=== PATIENT | female | born 1935 | race Two or more races ===

== ENCOUNTER 2024-05-11 23:55 | Inpatient (IN) | payer MEDICARE, MEDICAID ==
[~2024-05-11] VITALS: Ht 160 cm; Wt 90.7 kg
[2024-05-12] MEDS ORDERED: AMLO5TAB4 PO (00:56)
[2024-05-12] MEDS ORDERED: HYDR-4076 PO (00:56)
[2024-05-12] MEDS ORDERED: ACET-2605 PO (00:56)
[2024-05-12] MEDS ORDERED: QUET25TA PO (00:56)
[2024-05-12] MEDS ORDERED: CHOL500062 PO (00:56)
[2024-05-12] MEDS ORDERED: ATOR20TA PO (00:56)
[2024-05-12] MEDS ORDERED: GABA-532 PO (00:56)
[2024-05-12] MEDS ORDERED: CRAN425C6 PO (00:56)
[2024-05-12] MEDS ORDERED: MELA10CA PO (00:56)
[2024-05-12] MEDS ORDERED: FAMO20TA8 PO (00:56)
[2024-05-12] MEDS ORDERED: LOSA100T3 PO (00:56)
[2024-05-12] MEDS ORDERED: METO25TA3 PO (00:56)
[2024-05-12 01:02] LABS: BASOPHILS % (AUTO) 0.5 % (0.0-2.0); EOSINOPHILS # (AUTO) 0.3 K/uL (0.0-0.7); EOSINOPHILS % (AUTO) 3.6 % (0.0-6.0); HEMATOCRIT 41 % (33-45); LYMPHOCYTES # (AUTO) 2.8 K/uL (0.8-4.8); LYMPHOCYTES % (AUTO) 29.8 % (20.0-44.0); MEAN CORPUSCULAR HEMOGLOBIN 30 PG (26.0-33.0); MEAN CORPUSCULAR HGB CONC 34 g/dl (31.0-36.0); MEAN CORPUSCULAR VOLUME 88 fL (82-100); MONOCYTES % (AUTO) 10.2 % (2.0-12.0); NEUTROPHILS # (AUTO) 5.3 K/uL (1.8-8.9); NEUTROPHILS % (AUTO) 55.9 % (43.0-81.0); PLATELET COUNT (AUTO) 176 K/uL (150-450); RED BLOOD CELL COUNT(AUTO) 4.64 MIL/uL (4.0-5.2); RED CELL DISTRIBUTION WIDTH 13.6 % (11.5-15.0); WHITE BLOOD COUNT (AUTO) 9.4 K/uL (4.3-11.0)
[2024-05-12 01:12] LABS: APPEARANCE,URINE CLEAR (CLEAR); BILIRUBIN,URINE NEGATIVE (NEGATIVE); BLOOD, URINE NEGATIVE Ery/uL (NEGATIVE); COLOR,URINE YELLOW (YELLOW); KETONES,URINE NEGATIVE (NEGATIVE); LEUKOCYTE ESTERASE ,URINE TRACE (NEGATIVE); NITRITE, URINE NEGATIVE (NEGATIVE); PH,URINE 7.5 (5.0-8.0); PROTEIN,URINE NEGATIVE (NEGATIVE); UGLUCOSE NEGATIVE (NEGATIVE)
[2024-05-12 01:20] LABS: AMPHETAMINE, URINE NEGATIVE (NEGATIVE); BARBITURATE, URINE NEGATIVE (NEGATIVE); BENZODIAZEPINE, URINE NEGATIVE (NEGATIVE); CANNABINOID, URINE NEGATIVE (NEGATIVE); COCCAINE, URINE NEGATIVE (NEGATIVE); OPIATE, URINE NEGATIVE (NEGATIVE); PHENCYCLIDINE SCREEN,URINE NEGATIVE (NEGATIVE)
[2024-05-12 01:22] LABS: RBC,URINE 0-2 /HPF (0-2)
[2024-05-12 01:23] LABS: ALANINE AMINOTRANSFERASE 22 U/L (12-78); ALBUMIN 3.2 g/dL (3.4-5.0); ALKALINE PHOSPHATASE 83 U/L (46-116); ASPARTATE AMINOTRANSFERASE 22 U/L (15-37); BILIRUBIN,DIRECT 0.2 mg/dL (0.0-0.2); BILIRUBIN,TOTAL 0.6 mg/dL (0.2-1.0); CALCIUM, SERUM 9.1 mg/dL (8.5-10.1); CARBON DIOXIDE 28 mmol/L (21-32); CHLORIDE 106 mmol/L (98-107); CREATININE 0.6 mg/dL (0.6-1.3); GLUCOSE 100 mg/dL (74-106); POTASSIUM 3.6 mmol/L (3.5-5.1); SODIUM SERUM 141 mmol/L (136-145); TOTAL PROTEIN, SERUM 6.5 g/dL (6.4-8.2); UREA NITROGEN, BLOOD 8 mg/dL (7-18)
[2024-05-12 01:23] LABS: ADD URINE CULTURE YES; BACTERIA,URINE 2+ /HPF (None Seen)
[2024-05-12 01:24] LABS: ACETAMINOPHEN <10 ug/ml (10-30); SALICYLATE 0.6 mg/dL (2.8-20.0)
[2024-05-12 01:33] LABS: ALCOHOL, BLOOD < 3 mg/dL (0-10)
[2024-05-12] MEDS ORDERED: HYDROCODONE/APAP 5/325MG TABLET ONE (02:32)
[2024-05-12] MEDS ORDERED: CEPHALEXIN MONOHYDRATE 500 MG CAPSULE PO ONE (02:33)
[2024-05-12] MEDS: HYDROCODONE/APAP 5/325MG TABLET PO PRN (02:39)
[2024-05-12] MEDS: CEPHALEXIN MONOHYDRATE 500 MG CAPSULE PO SCH (02:44)
[2024-05-12] MEDS ORDERED: MORPHINE SULFATE INJ 2 MG/ML DISP.SYRIN IV PRN (05:30)
[2024-05-12] MEDS ORDERED: IV NS 0.9% 1,000 ML IV PRN (05:30)
[2024-05-12] MEDS ORDERED: ACETAMINOPHEN 650 MG/SUPP.RECT RC PRN (05:30)
[2024-05-12] MEDS ORDERED: ONDANSETRON HCL/PF 4 MG/2 ML VIAL IVP PRN (05:30)
[2024-05-12 07:58] LABS: BASOPHILS % (AUTO) 0.3 % (0.0-2.0); EOSINOPHILS # (AUTO) 0.4 K/uL (0.0-0.7); EOSINOPHILS % (AUTO) 3.2 % (0.0-6.0); HEMATOCRIT 42 % (33-45); LYMPHOCYTES # (AUTO) 5.5 K/uL (0.8-4.8); LYMPHOCYTES % (AUTO) 48.9 % (20.0-44.0); MEAN CORPUSCULAR HEMOGLOBIN 29 PG (26.0-33.0); MEAN CORPUSCULAR HGB CONC 33 g/dl (31.0-36.0); MEAN CORPUSCULAR VOLUME 88 fL (82-100); MONOCYTES # (AUTO) 0.9 K/uL (0.1-1.30); MONOCYTES % (AUTO) 8.4 % (2.0-12.0); NEUTROPHILS # (AUTO) 4.4 K/uL (1.8-8.9); NEUTROPHILS % (AUTO) 39.2 % (43.0-81.0); PLATELET COUNT (AUTO) 183 K/uL (150-450); RED BLOOD CELL COUNT(AUTO) 4.81 MIL/uL (4.0-5.2); RED CELL DISTRIBUTION WIDTH 13.4 % (11.5-15.0); WHITE BLOOD COUNT (AUTO) 11.2 K/uL (4.3-11.0)
[2024-05-12 08:10] LABS: CALCIUM, SERUM 9.3 mg/dL (8.5-10.1); CREATININE 0.6 mg/dL (0.6-1.3); MAGNESIUM 1.9 mg/dL (1.8-2.4); PHOSPHORUS 2.9 mg/dL (2.5-4.9); POTASSIUM 4.1 mmol/L (3.5-5.1)
[2024-05-12 08:12] LABS: INR 1.09 (0.91-1.10); PROTHROMBIN TIME 11.5 SECS (9.2-11.1)
[2024-05-12] MEDS: PANTOPRAZOLE 40 MG VIAL IV SCH (09:00)
[2024-05-12] MEDS ORDERED: PANTOPRAZOLE 40 MG VIAL ONE (09:04)
[2024-05-12] MEDS ORDERED: ACET325T53 PO (12:34)
[2024-05-12] MEDS ORDERED: DOCU100C36 PO (12:34)
[2024-05-12] MEDS ORDERED: BISA5TAB10 PO (12:34)
[2024-05-12] MEDS ORDERED: MAGN400O6 PO (12:34)
[2024-05-12] MEDS ORDERED: ACETAMINOPHEN 325 MG TABLET PO PRN (17:30)
[2024-05-12] MEDS ORDERED: TEMAZEPAM 7.5 MG CAPSULE PO PRN (17:30)
[2024-05-12] MEDS ORDERED: LORAZEPAM 0.5 MG TABLET PO PRN (17:30)
[2024-05-12] MEDS ORDERED: MAG HYDROX/AL HYDROX/SIMETH 30 ML UDC PO PRN (17:30)
[2024-05-12] MEDS ORDERED: MAGNESIUM HYDROXIDE 30 ML UDC PO PRN (17:30)
[2024-05-12] MEDS: BLOOD SUGAR DIAGNOSTIC 1 EACH STRIP IN ONE (18:04)
[2024-05-12 20:00] VITALS: BP 140/93; TEMP 97.9; O2SAT 98
[2024-05-12] MEDS: QUETIAPINE FUMARATE 25 MG TABLET PO SCH (20:06)
[2024-05-12] MEDS ORDERED: QUETIAPINE FUMARATE 25 MG TABLET PO SCH (21:00)
[2024-05-13] MEDS ORDERED: CEFTRIAXONE 1 G in IV D5W 50 ML IV SCH (03:00)
[2024-05-13 08:00] VITALS: BP 121/83; TEMP 97.7; O2SAT 97
[2024-05-13] MEDS: DULOXETINE HCL 30 MG CAPSULE.DR PO SCH (14:19)
[2024-05-13 16:00] VITALS: BP 152/81; TEMP 98.1; O2SAT 96
[2024-05-13 20:31] VITALS: BP 144/82; TEMP 97.9; O2SAT 92
[2024-05-13] MEDS: ATORVASTATIN 10 MG TABLET PO SCH (21:41)
[2024-05-13] MEDS: hydrALAZINE HCL 25 MG TABLET PO SCH (21:42)
[2024-05-13] MEDS ORDERED: Medication Not On Formulary EA (Melatonin 10 MG) PO SCH (22:00)
[2024-05-14 05:29] VITALS: BP 157/83; TEMP 98; O2SAT 98
[2024-05-14 08:27] VITALS: BP 152/80; TEMP 97.6; TEMP 98.2; O2SAT 96
[2024-05-14] MEDS: Z GUARD REMEDY 4 OZ OINT TP SCH (08:46)
[2024-05-14] MEDS: FAMOTIDINE (20 MG) 20 MG TABLET PO SCH (08:50)
[2024-05-14] MEDS: DOCUSATE SODIUM 100 MG CAPSULE PO SCH (08:50)
[2024-05-14] MEDS: CHOLECALCIFEROL 1,000 UNIT TABLET (VIT D3) PO SCH (08:50)
[2024-05-14] MEDS: BISACODYL (5 MG) 5 MG TABLET.DR PO SCH (08:50)
[2024-05-14] MEDS: LOSARTAN POTASSIUM 50 MG TABLET PO SCH (08:51)
[2024-05-14] MEDS: GABAPENTIN 100 MG CAPSULE PO SCH (08:51)
[2024-05-14] MEDS: CEPHALEXIN MONOHYDRATE 500 MG CAPSULE PO SCH (08:51)
[2024-05-14] MEDS: METOPROLOL SUCCINATE 25 MG TAB.SR.24H PO SCH (08:51)
[2024-05-14] MEDS: AMLODIPINE BESYLATE 5 MG TABLET PO SCH (08:52)
[2024-05-14] MEDS ORDERED: Medication Not On Formulary EA (Cranberry Extract (Cranberry) 450 MG) PO SCH (09:00)
[2024-05-14 15:56] VITALS: BP 157/76; TEMP 98.6; O2SAT 95
[2024-05-14 20:00] VITALS: BP 152/71; TEMP 98.3; O2SAT 96
[2024-05-15 08:00] VITALS: BP 129/61; TEMP 98.1; O2SAT 95
[2024-05-15] MEDS: DULOXETINE HCL 30 MG CAPSULE.DR PO SCH (12:49)
[2024-05-15 16:00] VITALS: BP 150/79; TEMP 98.6; O2SAT 96
[2024-05-15 19:51] VITALS: BP 148/72; TEMP 98.7; O2SAT 93
[2024-05-16 08:00] VITALS: BP 140/71; TEMP 98.6; O2SAT 98
[2024-05-16 16:00] VITALS: BP 123/71; TEMP 98.6; O2SAT 95
[2024-05-16 21:17] VITALS: BP 140/90; TEMP 98.6; O2SAT 96
[2024-05-17 08:00] VITALS: BP 134/67; TEMP 97.9; O2SAT 96
[2024-05-17] MEDS: GABAPENTIN 300 MG CAPSULE PO SCH (08:57)
[2024-05-17 16:00] VITALS: BP 115/65; TEMP 98.6; O2SAT 96
[2024-05-17 21:04] VITALS: BP 134/77; TEMP 98.1; O2SAT 96
[2024-05-18 08:00] VITALS: BP 126/60; TEMP 98.1; O2SAT 97
[2024-05-18 16:00] VITALS: BP 116/45; TEMP 98.1; O2SAT 99
[2024-05-18 20:44] VITALS: BP 120/70; TEMP 97.9; O2SAT 96
[2024-05-19 08:00] VITALS: BP 107/61; TEMP 98; O2SAT 98
[2024-05-19 16:00] VITALS: BP 132/73; TEMP 98.6; O2SAT 96
[2024-05-19] MEDS: Z GUARD REMEDY 4 OZ OINT TP PRN (17:16)
[2024-05-19 20:10] VITALS: BP 120/80; TEMP 98.8; O2SAT 98
[2024-05-20 08:00] VITALS: BP 109/96; TEMP 98.1; O2SAT 97
[2024-05-20] MEDS: DULOXETINE HCL 30 MG CAPSULE.DR PO SCH (13:02)
[2024-05-20 16:00] VITALS: BP 117/65; TEMP 97.7; O2SAT 95
[2024-05-20 20:00] VITALS: BP 141/77; TEMP 97.9; O2SAT 95
[2024-05-21 08:00] VITALS: BP 111/67; TEMP 97.8; O2SAT 100
[2024-05-21 09:00] VITALS: BP 111/67
== END 2024-05-21 14:17 | DRG 885 ==
LOC: ER 23:57 → GPS 05-12 02:00 → MED 05-12 04:31 → GPS 05-12 12:01
PROVIDERS: ADMIT Psychiatry & Neurology Psychosomatic Medicine
DX: F29 Unspecified psychosis not due to a substance or known physiological condition (principal); S72.142A Displaced intertrochanteric fracture of left femur, initial encounter for closed fracture; R45.851 Suicidal ideations; M97.02XA Periprosthetic fracture around internal prosthetic left hip joint, initial encounter; F03.93 Unspecified dementia, unspecified severity, with mood disturbance; Z91.198 Patient's noncompliance with other medical treatment and regimen for other reason; E78.5 Hyperlipidemia, unspecified; K21.9 Gastro-esophageal reflux disease without esophagitis; Z86.73 Personal history of transient ischemic attack (TIA), and cerebral infarction without residual deficits; I10 Essential (primary) hypertension; X58.XXXA Exposure to other specified factors, initial encounter; Y92.129 Unspecified place in nursing home as the place of occurrence of the external cause; F32.A Depression, unspecified; Z79.899 Other long term (current) drug therapy
CPT/HCPCS: 36415; 73502; 73552; 73700-TC; 80048-TC; 80076-TC; 81001; 82962-TC; 83735-TC; 84100-TC; 85025-TC; 85610-TC; 87081-TC; 87086-TC; G0480; J0696; J2405; J2470; J7060